=== PATIENT | female | born 1970 | race Caucasian/White ===

== ENCOUNTER 2019-04-18 08:20 | Outpatient (CLI) | payer BC | END 2019-04-18 23:59 | disposition home or self-care (01) | LOC: CFH 08:20 | PROVIDERS: ATTEND Registered Nurse | DX: Z14.8 Genetic carrier of other disease (principal); K21.9 Gastro-esophageal reflux disease without esophagitis; Z90.49 Acquired absence of other specified parts of digestive tract; Z88.5 Allergy status to narcotic agent; Z88.2 Allergy status to sulfonamides | CPT/HCPCS: 71250 ==

== ENCOUNTER → 2019-12-26 | Outpatient (CLI) | payer BC | END | disposition home or self-care (01) | LOC: STAR 09:59 | PROVIDERS: ATTEND Family Medicine | DX: Z01.818 Encounter for other preprocedural examination (principal); F28 Other psychotic disorder not due to a substance or known physiological condition; F33.41 Major depressive disorder, recurrent, in partial remission | CPT/HCPCS: 93005 ==